=== PATIENT | male | born 1940 | race Caucasian/White ===

== ENCOUNTER 2016-05-22 19:04 | Observation (INO) ==
[2016-05-22] MEDS ORDERED: Aspirin 81 MG TAB.CHEW PO ONE (19:13)
--- NOTE | 2016-05-22 19:16 | Emergency Department Note ---
Disposition Clinical Impression: Chest pain, Atrial fibrillation Disposition: Admitted As Inpatient Condition: Fair Time of Disposition: 21:20 ([facility]) Chest Pain HPI - General Chief Complaint: ED Chest Pain Stated Complaint: chest pain Time Seen by Provider: 05/22/16 19:07 Source: patient Mode of arrival: ambulatory Limitations: age Vital Signs Reviewed: Yes Nursing Notes Reviewed: Yes - History of Present Illness HPI Narrative: Elderly male who was at home had a sudden onset of substernal chest pain no nausea no vomiting no diaphoresis Y states that he was flushed in the face he comes to the emergency room by private auto clutching his chest and complaining of substernal chest pain and felt like his to pass out that his heart was racing denies any known trauma denies prior history of cardiac disease denies any additional complaints Pt complaint: chest pain Onset (ago): hour(s) (2-4) Duration: intermittent Onset: during rest Pain Location: substernal Severity: moderate, severe Severity scale (1-10): 8 Improves with: nothing Worsens with: nothing Associated symptoms: Reports: nausea, diaphoresis, dyspnea, palpitations. Denies: vomiting, sense of impending doom, syncope, fever, cough, leg swelling Treatments prior to arrival chest pain: none - Related Data Home Medications Medication Instructions Recorded Confirmed Amlodipine [Norvasc] 5 mg PO DAILY 01/13/16 05/22/16 Diazepam [Valium] 10 mg PO HS 01/13/16 05/22/16 Ezetimibe [Zetia] 10 mg PO DAILY 01/13/16 05/22/16 Fenofibrate [Lofibra] 160 mg PO DAILY 01/13/16 05/22/16 Gabapentin [Neurontin] 300 mg PO TID 01/13/16 05/22/16 LORazepam [Ativan] 0.5 mg PO BID 01/13/16 05/22/16 Levothyroxine [Synthroid] 50 mcg PO DAILY 01/13/16 05/22/16 Losartan/HCTZ [Hyzaar 50-12.5 1 each PO DAILY 01/13/16 05/22/16 Tablet] Metformin [Glucophage] 500 mg PO BIDWM 01/13/16 05/22/16 OxyCODONE/APAP 10/325 [Percocet 1 each PO Q4HR PRN 01/13/16 05/22/16 10/325 MG] Testosterone Cypionate 50 mg IM Q2W 01/13/16 05/22/16 [Depo-Testosterone] Aspirin [Lo-Dose Aspirin EC] 81 mg PO DAILY 05/22/16 05/22/16 Niacin 500 mg PO BID 05/22/16 05/22/16 Tamsulosin HCl [Flomax] 0.4 mg PO DAILY 05/22/16 05/22/16 Allergies Allergy/AdvReac Type Severity Reaction Status Date / Time No Known Allergies Allergy Verified 05/22/16 19:06 All systems ED: reviewed and negative except as stated. Constitutional: Reports: weakness. Denies: fever, chills Eyes: Denies: eye pain ENT ED: Denies: ear pain Cardiovascular: Reports: chest pain, palpitations. Denies: dyspnea on exertion Respiratory: Reports: dyspnea Gastrointestinal: Denies: abdominal pain, nausea, vomiting Genitourinary: Denies: urgency, dysuria, frequency Musculoskeletal: Denies: back pain, neck pain Integumentary: Denies: abrasion, lesions Neurological: Denies: headache Psychiatric: Denies: anxiety Endocrine: Denies: fatigue Hematological/Lymphatic: Denies: easy bleeding Allergic/Immunologic: Denies: facial swelling Chest Pain PMH - Past Medical History Medical history: Reports: diabetes, hyperlipidemia, hypertension, myocardial infarction Psychiatric history: Reports: anxiety, depression - Social History Smoking Status: Former smoker Alcohol use: Reports: rarely Drug use: Reports: none Physical Exam - General Limitations: no limitations General appearance: alert, anxious, in distress - Head Head exam: atraumatic, normocephalic, normal inspection - Eye Eye exam: Present: normal appearance, PERRL, EOMI - ENT ENT exam: normal exam, normal oropharynx, mucous membranes moist, normal external ear exam - Neck Neck exam: Present: normal inspection, full ROM, trachea midline - Chest Chest inspection: Present: normal inspection, symmetric chest wall rise - Respiratory Respiratory exam: Present: normal lung sounds bilaterally - Cardiovascular Cardiovascular exam: Present: tachycardia, irregular rhythm - Abdominal Exam Abdominal exam: Present: soft, Non-Tender, normal bowel sounds. Absent: mass, pulsatile mass - Expanded Upper Extremity Exam Shoulder exam: Present: normal inspection, full ROM Arm exam: Present: normal inspection, full ROM Elbow exam: Present: normal inspection, full ROM Forearm/Wrist exam: Present: normal inspection, full ROM Hand exam: Present: normal inspection, full ROM Neurosensory exam: Normal: radial nerve, ulnar nerve, median nerve Vascular exam: Normal: capillary refill, radial pulse, ulnar pulse - Expanded Lower Extremity Exam Hip/Pelvis exam: Present: normal inspection, full ROM Upper leg exam: Present: normal inspection, full ROM Knee exam: Present: normal inspection, full ROM Lower leg exam: Present: normal inspection, full ROM Ankle exam: Present: normal inspection, full ROM Foot/toe exam: Present: normal inspection, full ROM Neurovascular/Tendon exam: Present: normal capillary refill, normal fine/light touch. Absent: motor deficit, sensory deficit, tendon deficit Gait: observed and normal - Back Exam Back exam: Present: normal inspection, full ROM. 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 Crook he is in agreement stable at time of transfer on a Cardizem drip 5/h a slight increase in his heart rate which prompted the second dose of Cardizem and the Cardizem drip Vital Signs Temperature 97.8 F 05/22/16 19:07 Pulse Rate 155 05/22/16 19:07 Respiratory Rate 23 05/22/16 19:07 Blood Pressure 160/82 05/22/16 19:07 O2 Sat by Pulse Oximetry 94 05/22/16 19:07 Temperature 97.8 F 05/22/16 19:09 Pulse Rate 100 05/22/16 22:16 Respiratory Rate 17 05/22/16 22:16 Blood Pressure 115/80 05/22/16 22:16 O2 Sat by Pulse Oximetry 96 05/22/16 22:16 Oxygen Delivery Oxygen Delivery Nasal Cannula Chest Pain - Medical Records Medical records reviewed: Yes I reviewed the patient's medical records. - Lab Data Lab results reviewed: Yes I reviewed the patient's lab results. Result diagrams: 05/22/16 19:17 05/22/16 19:17 Lab Results 05/22/16 05/22/16 05/22/16 Range/Units 19:17 19:17 19:17 WBC 7.2 (4.3-11.1) K/mcL RBC 4.70 (4.19-5.50) M/mcL Hgb 16.0 (12.9-16.9) g/dL Hct 46.5 (37.5-50.1) % MCV 98.9 (83.0-100.0) fL MCH 34.0 H (28.0-33.3) pg MCHC 34.4 (31.6-35.5) g/dL RDW 14.2 (11.5-14.5) % Plt Count 239 (140-400) K/mcL MPV 10.4 (9.4-12.4) fL Immature Gran % 0.3 (0-4) % Seg Neutrophils % 58.4 % Lymphocytes % 31.1 % Monocytes % 8.7 % Eosinophils % 1.1 % Basophils % 0.4 % Neutrophils # 4.2 (1.6-8.9) K/mcL Lymphocytes # 2.2 (0.6-4.6) K/mcL Monocytes # 0.6 (0.0-1.3) K/mcL Eosinophils # 0.1 (0.0-0.6) K/mcL Basophils # 0.0 (0.0-0.2) K/mcL PT 11.7 (9.4-12.1) Seconds INR 1.1 APTT 33.7 (26.0-36.0) Seconds D-Dimer 1536 H (0-500) ng/mLFEU Sodium 143 (136-145) mEq/L Potassium 3.8 (3.5-4.5) mEq/L Chloride 103 (98-109) mEq/L Carbon Dioxide 25 (19-29) mEq/L BUN 17 (8-26) mg/dL Creatinine 1.30 H (0.72-1.25) mg/dL Est GFR ( Amer) > 60 (> 60) Est GFR (Non-Af Amer) 54 L (> 60) BUN/Creatinine Ratio 13 (6-26) Glucose 99 (70-99) mg/dL Calculated Osmolality 298 (280-300) Calcium 9.8 (8.6-10.8) mg/dL Troponin I (0-0.03) ng/mL B-Natriuretic Peptide (0-100) pg/mL TSH 0.598 (0.350-4.840) mcIU/mL 05/22/16 05/22/16 Range/Units 19:17 19:17 WBC (4.3-11.1) K/mcL RBC (4.19-5.50) M/mcL Hgb (12.9-16.9) g/dL Hct (37.5-50.1) % MCV (83.0-100.0) fL MCH (28.0-33.3) pg MCHC (31.6-35.5) g/dL RDW (11.5-14.5) % Plt Count (140-400) K/mcL MPV (9.4-12.4) fL Immature Gran % (0-4) % Seg Neutrophils % % Lymphocytes % % Monocytes % % Eosinophils % % Basophils % % Neutrophils # (1.6-8.9) K/mcL Lymphocytes # (0.6-4.6) K/mcL Monocytes # (0.0-1.3) K/mcL Eosinophils # (0.0-0.6) K/mcL Basophils # (0.0-0.2) K/mcL PT (9.4-12.1) Seconds INR APTT (26.0-36.0) Seconds D-Dimer (0-500) ng/mLFEU Sodium (136-145) mEq/L Potassium (3.5-4.5) mEq/L Chloride (98-109) mEq/L Carbon Dioxide (19-29) mEq/L BUN (8-26) mg/dL Creatinine (0.72-1.25) mg/dL Est GFR ( Amer) (> 60) Est GFR (Non-Af Amer) (> 60) BUN/Creatinine Ratio (6-26) Glucose (70-99) mg/dL Calculated Osmolality (280-300) Calcium (8.6-10.8) mg/dL Troponin I 0.03 (0-0.03) ng/mL B-Natriuretic Peptide 426 H (0-100) pg/mL TSH (0.350-4.840) mcIU/mL - Radiology Data Radiology results reviewed: Yes I reviewed the patient's radiology results. ITS Impressions Chest X-Ray 05/22/16 19:12 IMPRESSION: Hypoaeration with vascular crowding and basilar atelectasis. D/ / 05/22/2016 19:32:22 Kai Thornton MD / perla Interpreting Provider: Kai Thornton MD Chest CTA 05/22/16 19:38 IMPRESSION: No evidence of pulmonary embolism or acute pulmonary abnormality. D/ / Wood Santos MD / Wood Santos MD Interpreting Provider: Wood Santos MD - EKG Data EKG attestation: Yes I reviewed and interpreted this EKG. EKG results narrative: Atrial fib with RVR i rate 154 QRS QT axis normal Heart Score - Score History: Moderately Suspicious EKG: Normal Age: Greater than 65 Risk Factors: Equal/Greater than 3 risk factor or history of atherosclerotic disease Troponin: Less than normal limit HEART Score Total: 5 Critical Care Time Critical Care Time: Yes Total Critical Care Time: 35 Attestation: Critical care performed: 5 minutes as a result patient is in atrial fib with RVR stabilization of the cardiac arrhythmia giving IV medications and discussion with the accepting physician for admission and transfer to his services Time is exclusive of separately billable procedures. Time includes: direct patient care, patient reassessment, coordination of patient care, interpretation of data (laboratory data, radiology data, and respiratory data), review of patient's medical records, medical consultation and documentation of patient care. Procedures included in critical care time: Procedures excluded from critical care time:
[2016-05-22 19:22] LABS: Basophils % 0.4 %; Eosinophils # 0.1 K/mcL (0.0-0.6); Eosinophils % 1.1 %; Hematocrit 46.5 % (37.5-50.1); Immature Granulocytes % 0.3 % (0-4); Lymphocytes # 2.2 K/mcL (0.6-4.6); Lymphocytes % 31.1 %; Mean Corpuscular HGB Conc 34.4 g/dL (31.6-35.5); Mean Corpuscular Volume 98.9 fL (83.0-100.0); Mean Platelet Volume 10.4 fL (9.4-12.4); Monocytes # 0.6 K/mcL (0.0-1.3); Monocytes % 8.7 %; Neutrophils # 4.2 K/mcL (1.6-8.9); Platelet Count 239 K/mcL (140-400); Red Cell Distribution Width 14.2 % (11.5-14.5); Segmented Neutrophils % 58.4 %
[2016-05-22 19:28] LABS: INR 1.1; Prothrombin Time 11.7 Seconds (9.4-12.1)
[2016-05-22 19:31] LABS: Activated Partial Thrombo Time 33.7 Seconds (26.0-36.0)
[2016-05-22 19:37] LABS: BUN/Creatinine Ratio 13 (6-26); Blood Urea Nitrogen 17 mg/dL (8-26); Calcium 9.8 mg/dL (8.6-10.8); Carbon Dioxide 25 mEq/L (19-29); Chloride 103 mEq/L (98-109); Glucose 99 mg/dL (70-99); Osmolality,Calculated 298 (280-300); Potassium 3.8 mEq/L (3.5-4.5); Sodium 143 mEq/L (136-145); eGFR For African Americans > 60 (> 60); eGFR For Non-African Americans 54 (> 60)
[2016-05-22 19:58] LABS: Thyroid Stimulating Hormone 0.598 mcIU/mL (0.350-4.840)
[2016-05-22] MEDS ORDERED: *HR* Enoxaparin 80 MG/0.8 ML SYRINGE SQ STA (20:36)
[2016-05-22] MEDS ORDERED: D5% in Water 100 ML ONE (21:46)
[2016-05-22] MEDS ORDERED: *HR* Dextrose 50 % in Water (Syg) 50 ML SYRINGE IVP PRN (23:46)
[2016-05-22] MEDS ORDERED: Dextrose Gel 15 GM PO PRN ×2 (23:46)
[2016-05-22] MEDS ORDERED: D5% in Water 1,000 ML IVC PRN (23:46)
[2016-05-22] MEDS ORDERED: 0.9 % Sodium Chloride 1,000 ML IVC SCH (23:46)
[2016-05-22] MEDS ORDERED: *HR* OxyCODONE/APAP 10/325 TABLET PO PRN (23:46)
[2016-05-22] MEDS ORDERED: Naloxone 0.4 MG/ML INJ IVP PRN (23:46)
[2016-05-23 02:30] LABS: Basophils % 0.4 %; Eosinophils # 0.1 K/mcL (0.0-0.6); Eosinophils % 2.1 %; Hematocrit 45.8 % (37.5-50.1); Hemoglobin 15.7 g/dL (12.9-16.9); Immature Granulocytes % 0.3 % (0-4); Lymphocytes # 2.3 K/mcL (0.6-4.6); Lymphocytes % 34.2 %; Mean Corpuscular HGB Conc 34.3 g/dL (31.6-35.5); Mean Corpuscular Volume 99.1 fL (83.0-100.0); Mean Platelet Volume 10.3 fL (9.4-12.4); Monocytes # 0.7 K/mcL (0.0-1.3); Monocytes % 10.8 %; Neutrophils # 3.5 K/mcL (1.6-8.9); Platelet Count 241 K/mcL (140-400); Red Blood Count 4.62 M/mcL (4.19-5.50); Red Cell Distribution Width 14.4 % (11.5-14.5); Segmented Neutrophils % 52.2 %
[2016-05-23] MEDS ORDERED: *HR* Digoxin 0.5 MG/2 ML AMPUL IVP ONE (02:31)
[2016-05-23] MEDS ORDERED: *HR* OxyCODONE/APAP 10/325 TABLET PO PRN (02:31)
[2016-05-23] MEDS ORDERED: 0.9 % Sodium Chloride 1,000 ML IVC SCH (02:31)
[2016-05-23] MEDS ORDERED: *HR* Dextrose 50 % in Water (Syg) 50 ML SYRINGE IVP PRN (02:31)
[2016-05-23] MEDS ORDERED: Naloxone 0.4 MG/ML INJ IVP PRN (02:31)
[2016-05-23] MEDS ORDERED: D5% in Water 1,000 ML IVC PRN (02:31)
[2016-05-23] MEDS ORDERED: Dextrose Gel 15 GM PO PRN ×2 (02:31)
[2016-05-23 02:39] LABS: INR 1.1; Prothrombin Time 11.8 Seconds (9.4-12.1)
[2016-05-23 02:41] LABS: Activated Partial Thrombo Time 39.6 Seconds (26.0-36.0)
[2016-05-23 02:45] LABS: Calcium 9.2 mg/dL (8.6-10.8); Potassium 4.3 mEq/L (3.5-4.5)
[2016-05-23] MEDS ORDERED: Levothyroxine 25 MCG TABLET PO SCH ×2 (06:30)
[2016-05-23] MEDS ORDERED: Insulin LISPRO 300 UNITS/3 ML VIAL SQ SCH ×2 (07:30)
[2016-05-23] MEDS ORDERED: *HR* LORazepam 0.5 MG TABLET PO SCH ×2 (09:00)
[2016-05-23] MEDS ORDERED: Fenofibrate 54 MG TABLET PO SCH ×2 (09:00)
[2016-05-23] MEDS ORDERED: Niacin (24 HR) 500 MG TAB.ER.24H PO SCH ×2 (09:00)
[2016-05-23] MEDS ORDERED: ZETIA 10MG PO SCH (09:00)
[2016-05-23] MEDS ORDERED: ZETIA 10 MG PO SCH (09:00)
[2016-05-23] MEDS ORDERED: Aspirin Enteric Coated 81 MG Tablet PO SCH ×2 (09:00)
[2016-05-23] MEDS ORDERED: Gabapentin 300 MG CAPSULE PO SCH ×2 (09:00)
[2016-05-23] MEDS ORDERED: Losartan/HCTZ 50-12.5 TABLET PO SCH ×2 (09:00)
--- NOTE | 2016-05-23 09:28 | Internal Med History&Physical ---
Date of Encounter: 05/23/16 Time of Encounter: 08:50 Assessment and Plan (1) Atrial fibrillation Current visit: Yes Status: Acute He was started on Cardizem drip in emergency room. He has now converted back to normal sinus rhythm. Qualifiers: Atrial fibrillation type: paroxysmal Qualified Code(s): I48.0 - Paroxysmal atrial fibrillation (2) Hypertension Current visit: Yes Status: Chronic Will start Toprol-XL and discontinue other antihypertensives Qualifiers: Hypertension type: essential hypertension Qualified Code(s): I10 - Essential (primary) hypertension (3) Azotemia Current visit: Yes Status: Acute Review of archived labs show probable chronic kidney disease stage III. He is uncertain if he is taking Hyzaar. I will start Toprol-XL as per above and renal indices can be monitored as an outpatient. (4) Chest pain Current visit: Yes Status: Acute Now resolved. He denies any angina or anginal equivalents on exertion routinely. Repeat cardiac enzymes were ordered through the emergency room. Qualifiers: Chest pain type: unspecified Qualified Code(s): R07.9 - Chest pain, unspecified Internal Medicine - H&P: HPI Chief complaint: Chest pain and palpitations Admitted From: Home Plans for Post Hospital Care: Home History of present illness: Mr. Vivas is a 76 year old male who states he had onset of tachypnea, tachycardia, and chest discomfort approximately 5 PM while at leisure. When it persisted for over an hour he decided to come to emergency room. He was evaluated and found to have AF with RVR. D-dimer was elevated but chest CTA showed no evidence of pulmonary embolism. He was placed on a Cardizem drip and admitted to [facility] floor for ongoing care needs. His cardiovascular history is significant for hypertension. He claims he had an [place] 2006. He states he had a heart catheter shortly after the [place] with no intervention recommended. He does not get angina or anginal equivalents now on exertion. He denies heart failure DVT or pulmonary embolus. He states he feels back to his baseline now and wishes to be discharged home. Past Med Surg Social Fam HX - Past Medical History Medical history: diabetes, hyperlipidemia, hypertension, myocardial infarction Psychiatric history: anxiety, depression - Social History Smoking Status: Former smoker Smokeless Tobacco Status: No Alcohol use: rarely Drug use: none Internal Medicine - H&P: Meds Amlodipine [Norvasc] 5 mg PO DAILY 01/13/16 [History] Diazepam [Valium] 10 mg PO HS 01/13/16 [History] Ezetimibe [Zetia] 10 mg PO DAILY 01/13/16 [History] Fenofibrate [Lofibra] 160 mg PO DAILY 01/13/16 [History] Gabapentin [Neurontin] 300 mg PO TID 01/13/16 [History] LORazepam [Ativan] 0.5 mg PO BID 01/13/16 [History] Levothyroxine [Synthroid] 50 mcg PO DAILY 01/13/16 [History] Losartan/HCTZ [Hyzaar 50-12.5 Tablet] 1 each PO DAILY 01/13/16 [History] Metformin [Glucophage] 500 mg PO BIDWM 01/13/16 [History] OxyCODONE/APAP 10/325 [Percocet 10/325 MG] 1 each PO Q4HR PRN 01/13/16 [History] Testosterone Cypionate [Depo-Testosterone] 50 mg IM Q2W 01/13/16 [History] Aspirin [Lo-Dose Aspirin EC] 81 mg PO DAILY 05/22/16 [History] Niacin 500 mg PO BID 05/22/16 [History] Tamsulosin HCl [Flomax] 0.4 mg PO DAILY 05/22/16 [History] Allergies No Known Allergies Allergy (Verified 05/22/16 19:06) All Systems PM: A 10-system review of systems was performed and is negative for pertinent findings except as documented above in the HPI. Review of systems: Gen.: He states his weight has been stable the past few months Cardiovascular: As per history of present illness Respiratory: He smoked from age [age] never exceeding one half pack per day. He does not have documented COPD and does not wear home oxygen GI: Denies disorders of his liver gallbladder or exocrine pancreas : He has BPH but denies other kidney or bladder disorders Neurologic: He denies large distribution strokes or seizures Endocrine: He was diagnosed with DM 2 approximately 2014. He has hypothyroidism and hyperlipidemia Hematology/oncology: He denies blood disorders cancers or anemia Psychiatric: He denies anxiety depression or other mental health issues Musculoskeletal: He had rotator cuff surgery on his right shoulder in the past. He denies other significant bone joint or muscle problems. He has had surgery on his right foot. - Constitutional Vitals: Temp Pulse Resp BP Pulse Ox 97.4 F L 79 18 125/80 95 05/23/16 08:00 05/23/16 08:00 05/23/16 08:00 05/23/16 08:00 05/23/16 08:00 Exam: Gen.: He is a well-developed well-nourished male who appears in no severe distress at present time. HEENT: Head is atraumatic and normocephalic. Eyes: EOMI. There is no scleral icterus. Mouth: Mucosa is moist. Neck: Supple and nontender. There is no thyromegaly or adenopathy noted. Heart: Regular without murmurs gallops or ectopics Lungs: No wheezes or crackles are heard. Abdomen: Soft and nontender. No masses or guarding are noted. Extremities: There is no cyanosis edema or clubbing noted. Dorsalis pedis and posterior tibial pulses are trace palpable bilaterally. Neurologic: Mental status: He is talkative and a good historian. Cranial nerves : Smile is symmetric. Forehead wrinkles bilaterally. Tongue protrudes midline. EOMI. Motor: There is no pronator drift. Cerebellar: Finger to nose is intact bilaterally. Skin: Warm and dry Internal Med - H&P Results - Labs CBC & Chem 7: 05/23/16 02:11 05/23/16 02:11 Labs: Short CBC 05/23/16 Range/Units 02:11 WBC 6.8 (4.3-11.1) K/mcL Hgb 15.7 (12.9-16.9) g/dL Hct 45.8 (37.5-50.1) % Plt Count 241 (140-400) K/mcL Neutrophils # 3.5 (1.6-8.9) K/mcL BMP 05/23/16 02:11 Sodium 144 Potassium 4.3 Chloride 106 Carbon Dioxide 27 BUN 18 Creatinine 1.43 H Glucose 99 Calcium 9.2 Cardiac Enzymes 05/23/16 05/23/16 Range/Units 02:11 07:48 Troponin I 0.06 H* 0.06 H* (0-0.03) ng/mL
--- NOTE | 2016-05-23 09:39 | Discharge Summary ---
Date of Encounter: 05/23/16 Time of Encounter: 08:50 - Discharge Diagnosis (1) Atrial fibrillation Priority: Primary Status: Acute Qualifiers: Atrial fibrillation type: paroxysmal Qualified Code(s): I48.0 - Paroxysmal atrial fibrillation (2) Hypertension Priority: Secondary Status: Chronic Qualifiers: Hypertension type: essential hypertension Qualified Code(s): I10 - Essential (primary) hypertension (3) Azotemia Priority: Secondary Status: Acute (4) Chest pain Priority: Secondary Status: Acute Qualifiers: Chest pain type: unspecified Qualified Code(s): R07.9 - Chest pain, unspecified - Discharge Medications Prescriptions: Metoprolol XL (24 HR) Succ [Toprol XL] 50 mg PO DAILY #30 tab.er.24h Home Medications: Diazepam [Valium] 10 mg PO HS 01/13/16 [History] Ezetimibe [Zetia] 10 mg PO DAILY 01/13/16 [History] Fenofibrate [Lofibra] 160 mg PO DAILY 01/13/16 [History] Gabapentin [Neurontin] 300 mg PO TID 01/13/16 [History] LORazepam [Ativan] 0.5 mg PO BID 01/13/16 [History] Levothyroxine [Synthroid] 50 mcg PO DAILY 01/13/16 [History] Metformin [Glucophage] 500 mg PO BIDWM 01/13/16 [History] OxyCODONE/APAP 10/325 [Percocet 10/325 MG] 1 each PO Q4HR PRN 01/13/16 [History] Testosterone Cypionate [Depo-Testosterone] 50 mg IM Q2W 01/13/16 [History] Aspirin [Lo-Dose Aspirin EC] 81 mg PO DAILY 05/22/16 [History] Niacin 500 mg PO BID 05/22/16 [History] Tamsulosin HCl [Flomax] 0.4 mg PO DAILY 05/22/16 [History] Metoprolol XL (24 HR) Succ [Toprol XL] 50 mg PO DAILY #30 tab.er.24h 05/23/16 [ Rx] Allergies/Adverse Reactions: Allergies No Known Allergies Allergy (Verified 05/22/16 19:06) Date of admission: 05/22/16 22:32 Primary care physician: Anel De Oliveira - Patient Status Disposition: Home, Self-Care Condition: Fair Overall status at discharge: patient is progressing back to baseline - Discharge Instructions Follow Up With: Anel De Oliveira MD [Primary Care Provider] - - Diet and Activity Activity: resume usual activities as tolerated Diet: diabetic diet Hospital course: Mr. Vivas is a 76 year old male who states he had onset of tachypnea, tachycardia, and chest discomfort approximately 5 PM while at leisure. When it persisted for over an hour he decided to come to emergency room. He was evaluated and found to have AF with RVR. D-dimer was elevated but chest CTA showed no evidence of pulmonary embolism. He was placed on a Cardizem drip and admitted to [facility] for ongoing care needs. Initial orders were written by the emergency room physician. I saw him on May 23 and performed a history physical and discharge. He was started on Cardizem drip through emergency room. He converted back to normal sinus rhythm at an acceptable rate and remained NSR throughout remainder of his hospital stay. The Cardizem drip was discontinued. Repeat cardiac enzymes showed a rise in troponin to 0.06 with repeat checks several hours later also 0.06. I felt this was likely troponin leak from demand ischemia from the AF with RVR. When I saw him he felt back to his baseline and wished to be discharged home. I will start him on Toprol-XL 50 mg daily and discontinue Hyzaar and Norvasc. Dr. De Oliveira can order follow-up labs to see if azotemia improves off Hyzaar. He will follow with Dr. De Oliveira within 1 week. - Time Spent with Patient Total time spent providing and/or coordinating discharge services: - Constitutional Vitals: Temp Pulse Resp BP Pulse Ox 97.4 F L 79 18 125/80 95 05/23/16 08:00 05/23/16 08:00 05/23/16 08:00 05/23/16 08:00 05/23/16 08:00
--- NOTE | 2016-05-25 08:55 | Electrocardiograph Report ---
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
[2016-05-26 08:30] VITALS: BP 125/80
== END 2016-05-23 11:15 | disposition home or self-care (01) ==
LOC: EMEROOPIK 19:04 → INPPIK 19:04
PROVIDERS: ADMIT Internal Medicine; ATTEND Internal Medicine

== ENCOUNTER 2017-11-06 00:32 | Observation (INO) ==
--- NOTE | 2017-11-06 00:55 | Emergency Department Note ---
Disposition Clinical Impression: Atrial fibrillation, Elevated troponin I level Disposition: Admitted As Inpatient Condition: Fair Referrals: Anel De Oliveira MD [Primary Care Provider] - Forms: ED Satisfaction Letter, Work/School Release Time of Disposition: 02:09 (mielna kumar) General Adult HPI - General Chief complaint: ED General Medical Stated complaint: multiple complaints Time Seen by Provider: 11/06/17 00:54 Source: patient Mode of arrival: ambulatory Limitations: no limitations Nursing Notes Reviewed: Yes Vital Signs Reviewed: Yes - History of Present Illness HPI Narrative: 77-year-old man who woke up earlier this evening about 2-3 hours prior nauseated sick to stomach and is somewhat of a sweat states that he just didn't feel well said that he fell if he could throw up he feel better he said that started to ease up but now he just has some persistent nausea really denies any chest pain chest pressure or radiation up into the neck of the jaw patient states that his ate the same thing [place] mash potatoes and chicken patient states that he felt flushed but didn't think that he had a fever states that he just can't get comfortable very uneasy feeling Onset (ago): hour(s) (3) Location: chest Pain Scale: 0 Improves with: nothing Worsens with: nothing Associated symptoms: Reports: chest pain, diaphoresis. Denies: confusion, cough Treatments Prior to Arrival: Aspirin - Related Data Home Medications Medication Instructions Recorded Confirmed Ezetimibe [Zetia] 10 mg PO DAILY 01/13/16 02/02/17 Gabapentin [Neurontin] 300 mg PO TID 01/13/16 11/06/17 LORazepam [Ativan] 0.5 mg PO BID PRN 01/13/16 11/06/17 Levothyroxine [Synthroid] 50 mcg PO DAILY 01/13/16 11/06/17 Testosterone Cypionate 100 mg IM Q2W 01/13/16 11/06/17 [Depo-Testosterone] diazePAM [Valium] 10 mg PO HS 01/13/16 11/06/17 metFORMIN [Glucophage] 500 mg PO BIDWM 01/13/16 11/06/17 Aspirin [Lo-Dose Aspirin EC] 81 mg PO DAILY 05/22/16 11/06/17 Tamsulosin HCl [Flomax] 0.4 mg PO DAILY 05/22/16 11/06/17 Multivitamin [Multi-Day Vitamins] 1 each PO DAILY 06/11/16 11/06/17 Naloxegol Oxalate [Movantik] 25 mg PO DAILY 06/11/16 11/06/17 Nitroglycerin [Nitrostat] 0.4 mg SL Q5M PRN 07/22/16 11/06/17 Rivaroxaban [Xarelto] 20 mg PO DAILY 07/22/16 11/06/17 Atorvastatin [Lipitor] 40 mg PO HS 11/10/16 11/06/17 Digoxin [Lanoxin] 0.125 mg PO DAILY 11/10/16 11/06/17 Losartan/Hydrochlorothiazide 1 tab PO DAILY 11/12/16 11/06/17 [Hyzaar 100-12.5 Tablet] Fenofibrate Nanocrystallized 160 mg PO DAILY 11/17/16 11/06/17 [Triglide] Previous Rx's Medication Instructions Recorded OxyCODONE/APAP 10/325 [Percocet 1 each PO Q4H PRN 7 Days #42 tablet 11/24/16 10/325 MG] Allergies Allergy/AdvReac Type Severity Reaction Status Date / Time No Known Allergies Allergy Verified 02/02/17 10:21 All systems ED: reviewed and negative except as stated. Review of Systems: As Per HPI Constitutional: Reports: fever. Denies: chills, weakness Eyes: Denies: eye pain, eye discharge ENT ED: Denies: ear pain, throat pain, dental pain Cardiovascular: Reports: chest pain, palpitations. Denies: dyspnea on exertion Respiratory: Denies: cough, dyspnea, wheezes Gastrointestinal: Reports: abdominal pain, nausea, vomiting (dry heaves) Genitourinary: Denies: urgency, dysuria, frequency Musculoskeletal: Denies: back pain, neck pain Integumentary: Denies: rash, abrasion Neurological: Denies: headache, weakness Psychiatric: Denies: anxiety, depression Endocrine: Denies: fatigue Hematological/Lymphatic: Denies: easy bleeding Allergic/Immunologic: Denies: facial swelling Past Medical History - Past Medical History Attestation: Yes The following information was validated with the patient. Source: patient, old records reviewed, nursing notes reviewed Medical history: Reports: arthritis, coronary artery disease, diabetes, glaucoma , hyperlipidemia, hypertension, myocardial infarction, other Surgical history: Reports: cholecystectomy, orthopedic, other, vascular surgery Psychiatric history: Reports: anxiety, depression - Social History Smoking Status: Current some day smoker Smokeless Tobacco Status: No Alcohol use: Reports: rarely Drug use: Reports: none Physical Exam - General Limitations: no limitations General appearance: alert, in no apparent distress - Head Head exam: atraumatic, normocephalic, normal inspection - Eye Eye exam: Present: normal appearance, PERRL, EOMI - ENT ENT exam: normal exam, normal oropharynx, mucous membranes moist, TM's normal bilaterally, normal external ear exam - Neck Neck exam: Present: normal inspection, full ROM, trachea midline - Chest Chest inspection: Present: normal inspection, symmetric chest wall rise - Respiratory Respiratory exam: Present: normal lung sounds bilaterally - Cardiovascular Cardiovascular exam: Present: regular rate, normal rhythm, normal heart sounds - Abdominal Exam Abdominal exam: Present: soft, Non-Tender, normal bowel sounds. Absent: mass, pulsatile mass - Extremities Exam Extremities exam: Present: normal inspection, full ROM, normal capillary refill. Absent: tenderness, pedal edema, joint swelling, calf tenderness - Expanded Lower Extremity Exam Neurovascular/Tendon exam: Present: normal capillary refill, normal fine/light touch Gait: observed and normal - Back Exam Back exam: Present: normal inspection, full ROM. Absent: muscle spasm - Neurological Exam Neurological exam: Present: alert, oriented X3, CN II-XII intact, normal gait - Psychiatric Psychiatric exam: Present: normal affect, normal mood Course Course Narrative: Patient was seen and examined EKG chest x-ray and laboratory data was drawn patient was maintained will monitor showed an occasional couplet and multifocal PVCs she appears to be clearly an atrial fib with RVR pattern fluctuating between 109 and in the 125 230 we have patient Cardizehammad to see if this slows his heart rate down he took aspirin prior to arrival anticipate transfer to [facility] for further management Patient rated will do the chest pressure and then went into a heart rate of 140 150 with RVR and his result of him 10 mg of Cardizem his heart rate then dropped to 108 any significant a little bit better all his discomfort was starting to ease but then with any type of movement amount of the bed he started having increasing tachycardia again going back endometrial fluid with RVR gave him an additional 5 mg of the Cardizem 15 milligrams total and the heart rate then slowed down to a high of 110 to 1:15 unless he was physically moving about the bed and then he would go up into an atrial fibrillation RVR still waiting on his dig level to come back to see if he is subtherapeutic on his did he has been taking his metoprolol XR once a day a kidney of his evening medications and he cannot recall which ones he takes at night as result we will anticipated transfer to [facility] for further management and treatment is now resting with a heart rate is 77 he has no further chest pain chest discomfort or any uneasy feeling patient's running a rate of 86 with an occasional unifocal PVC with a blood pressure of 124/65 patient is in atrial fib flutter Vital Signs Temperature 97.1 F L 11/06/17 00:34 Pulse Rate 102 11/06/17 00:34 Respiratory Rate 16 11/06/17 00:34 Blood Pressure 170/99 11/06/17 00:34 O2 Sat by Pulse Oximetry 92 11/06/17 00:34 Temperature 97.1 F L 11/06/17 00:34 Pulse Rate 81 11/06/17 01:39 Respiratory Rate 20 11/06/17 01:39 Blood Pressure 137/57 11/06/17 01:39 O2 Sat by Pulse Oximetry 97 11/06/17 01:39 Oxygen Delivery Oxygen Delivery Room Air Medical Decision Making - Medical Records Medical records reviewed: Yes I reviewed the patient's medical records. - Lab Data Lab results reviewed: Yes I reviewed the patient's lab results. Result diagrams: 11/06/17 01:17 11/06/17 01:17 Lab Results 11/06/17 11/06/17 11/06/17 Range/Units 01:17 01:17 01:17 WBC 7.3 (4.3-11.1) K/mcL RBC 4.25 (4.19-5.50) M/mcL Hgb 15.2 (12.9-16.9) g/dL Hct 42.3 (37.5-50.1) % MCV 99.5 (83.0-100.0) fL MCH 35.8 H (28.0-33.3) pg MCHC 35.9 H (31.6-35.5) g/dL RDW 12.4 (11.5-14.5) % Plt Count 192 (140-400) K/mcL MPV 10.1 (9.4-12.4) fL Immature Gran % 0.3 (0-4) % Seg Neutrophils % 57.5 % Lymphocytes % 31.0 % Monocytes % 8.7 % Eosinophils % 2.1 % Basophils % 0.4 % Neutrophils # 4.2 (1.6-8.9) K/mcL Lymphocytes # 2.3 (0.6-4.6) K/mcL Monocytes # 0.6 (0.0-1.3) K/mcL Eosinophils # 0.2 (0.0-0.6) K/mcL Basophils # 0.0 (0.0-0.2) K/mcL PT (9.4-12.1) Seconds INR APTT 36.0 (26.0-36.0) Seconds Sodium 133 L (136-145) mEq/L Potassium 3.8 (3.5-5.1) mEq/L Chloride 99 (98-107) mEq/L Carbon Dioxide 26 (23-29) mEq/L BUN 20 (8-23) mg/dL Creatinine 1.17 (0.70-1.30) mg/dL Est GFR ( Amer) > 60 (> 60) Est GFR (Non-Af Amer) > 60 (> 60) BUN/Creatinine Ratio 17 (6-26) Glucose 108 H (70-105) mg/dL Calculated Osmolality 279 L (280-300) Lactic Acid (0.5-2.2) mmol/L Calcium 8.8 (8.6-10.3) mg/dL Magnesium (1.6-2.6) mg/dL Total Bilirubin 0.5 (0.3-1.0) mg/dL AST 18 (13-39) Units/L ALT 13 (7-52) Units/L Alkaline Phosphatase 24 L (34-104) Units/L Troponin I (< 0.04) ng/mL Serum Total Protein 6.2 L (6.4-8.9) g/dL Albumin 3.9 (3.5-5.7) g/dL Globulin 2.3 L (2.4-3.5) g/dL Albumin/Globulin Ratio 1.7 (1.1-2.2) TSH (0.340-5.600) mcIU/mL Urine Color (Yellow) Urine Clarity (Clear) Urine pH (5.0-8.0) pH Units Ur Specific [place] (1.010-1.025) Urine Protein (Neg-Trace) mg/dL Urine Glucose (UA) (Normal) mg/dL Urine Ketones (Negative) mg/dL Urine Blood (Negative) Urine Nitrite (Negative) Urine Bilirubin (Negative) Urine Urobilinogen (Normal) mg/dL Ur Leukocyte Esterase (Negative) Urine Microscopic RBC (0-3) per hpf Urine Microscopic WBC (0-3) per hpf Ur Squamous Epith Cells (None-Few) per lpf Urine Bacteria (None-Few) per hpf Ur Culture Indicated? (NO) 11/06/17 11/06/17 11/06/17 Range/Units 01:17 01:17 01:17 WBC (4.3-11.1) K/mcL RBC (4.19-5.50) M/mcL Hgb (12.9-16.9) g/dL Hct (37.5-50.1) % MCV (83.0-100.0) fL MCH (28.0-33.3) pg MCHC (31.6-35.5) g/dL RDW (11.5-14.5) % Plt Count (140-400) K/mcL MPV (9.4-12.4) fL Immature Gran % (0-4) % Seg Neutrophils % % Lymphocytes % % Monocytes % % Eosinophils % % Basophils % % Neutrophils # (1.6-8.9) K/mcL Lymphocytes # (0.6-4.6) K/mcL Monocytes # (0.0-1.3) K/mcL Eosinophils # (0.0-0.6) K/mcL Basophils # (0.0-0.2) K/mcL PT 11.8 (9.4-12.1) Seconds INR 1.0 APTT (26.0-36.0) Seconds Sodium (136-145) mEq/L Potassium (3.5-5.1) mEq/L Chloride (98-107) mEq/L Carbon Dioxide (23-29) mEq/L BUN (8-23) mg/dL Creatinine (0.70-1.30) mg/dL Est GFR ( Amer) (> 60) Est GFR (Non-Af Amer) (> 60) BUN/Creatinine Ratio (6-26) Glucose (70-105) mg/dL Calculated Osmolality (280-300) Lactic Acid 1.2 (0.5-2.2) mmol/L Calcium (8.6-10.3) mg/dL Magnesium 1.9 (1.6-2.6) mg/dL Total Bilirubin (0.3-1.0) mg/dL AST (13-39) Units/L ALT (7-52) Units/L Alkaline Phosphatase (34-104) Units/L Troponin I 0.05 H* (< 0.04) ng/mL Serum Total Protein (6.4-8.9) g/dL Albumin (3.5-5.7) g/dL Globulin (2.4-3.5) g/dL Albumin/Globulin Ratio (1.1-2.2) TSH 1.080 (0.340-5.600) mcIU/mL Urine Color (Yellow) Urine Clarity (Clear) Urine pH (5.0-8.0) pH Units Ur Specific [place] (1.010-1.025) Urine Protein (Neg-Trace) mg/dL Urine Glucose (UA) (Normal) mg/dL Urine Ketones (Negative) mg/dL Urine Blood (Negative) Urine Nitrite (Negative) Urine Bilirubin (Negative) Urine Urobilinogen (Normal) mg/dL Ur Leukocyte Esterase (Negative) Urine Microscopic RBC (0-3) per hpf Urine Microscopic WBC (0-3) per hpf Ur Squamous Epith Cells (None-Few) per lpf Urine Bacteria (None-Few) per hpf Ur Culture Indicated? (NO) 11/06/17 Range/Units 01:31 WBC (4.3-11.1) K/mcL RBC (4.19-5.50) M/mcL Hgb (12.9-16.9) g/dL Hct (37.5-50.1) % MCV (83.0-100.0) fL MCH (28.0-33.3) pg MCHC (31.6-35.5) g/dL RDW (11.5-14.5) % Plt Count (140-400) K/mcL MPV (9.4-12.4) fL Immature Gran % (0-4) % Seg Neutrophils % % Lymphocytes % % Monocytes % % Eosinophils % % Basophils % % Neutrophils # (1.6-8.9) K/mcL Lymphocytes # (0.6-4.6) K/mcL Monocytes # (0.0-1.3) K/mcL Eosinophils # (0.0-0.6) K/mcL Basophils # (0.0-0.2) K/mcL PT (9.4-12.1) Seconds INR APTT (26.0-36.0) Seconds Sodium (136-145) mEq/L Potassium (3.5-5.1) mEq/L Chloride (98-107) mEq/L Carbon Dioxide (23-29) mEq/L BUN (8-23) mg/dL Creatinine (0.70-1.30) mg/dL Est GFR ( Amer) (> 60) Est GFR (Non-Af Amer) (> 60) BUN/Creatinine Ratio (6-26) Glucose (70-105) mg/dL Calculated Osmolality (280-300) Lactic Acid (0.5-2.2) mmol/L Calcium (8.6-10.3) mg/dL Magnesium (1.6-2.6) mg/dL Total Bilirubin (0.3-1.0) mg/dL AST (13-39) Units/L ALT (7-52) Units/L Alkaline Phosphatase (34-104) Units/L Troponin I (< 0.04) ng/mL Serum Total Protein (6.4-8.9) g/dL Albumin (3.5-5.7) g/dL Globulin (2.4-3.5) g/dL Albumin/Globulin Ratio (1.1-2.2) TSH (0.340-5.600) mcIU/mL Urine Color Yellow (Yellow) Urine Clarity Clear (Clear) Urine pH 7.0 (5.0-8.0) pH Units Ur Specific [place] 1.010 (1.010-1.025) Urine Protein Negative (Neg-Trace) mg/dL Urine Glucose (UA) Normal (Normal) mg/dL Urine Ketones Negative (Negative) mg/dL Urine Blood Trace-intact H (Negative) Urine Nitrite Negative (Negative) Urine Bilirubin Negative (Negative) Urine Urobilinogen Normal (Normal) mg/dL Ur Leukocyte Esterase Negative (Negative) Urine Microscopic RBC 0-3 (0-3) per hpf Urine Microscopic WBC 0-3 (0-3) per hpf Ur Squamous Epith Cells Few (None-Few) per lpf Urine Bacteria None Seen (None-Few) per hpf Ur Culture Indicated? NO (NO) - Radiology Data Radiology results reviewed: Yes I reviewed the patient's radiology results. ITS Impressions Chest X-Ray 11/06/17 00:51 IMPRESSION: No acute cardiopulmonary findings. 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 D/ / Alonso Hong / Alonso Hong Interpreting Provider: Alonso Hong - EKG Data EKG #1 EKG attestation: Yes I reviewed and interpreted this EKG. EKG results narrative: EKG atrial fibrillation rapid ventricular response rate of 123 QRS 94 QT to 77 axis -29 Critical Care Time Critical Care Time: Yes Total Critical Care Time: 15 Attestation: Critical care performed: 15 minutes high probability significant life- threatening deterioration patient edition excluding separately reportable procedures as result patient coming in with atrial fib with RVR and then going into an increased rate and then requiring Cardizem Time is exclusive of separately billable procedures. Time includes: direct patient care, patient reassessment, coordination of patient care, interpretation of data (laboratory data, radiology data, and respiratory data), review of patient's medical records, medical consultation and documentation of patient care. Procedures included in critical care time: Procedures excluded from critical care time:
[2017-11-06 01:33] LABS: Basophils % 0.4 %; Eosinophils # 0.2 K/mcL (0.0-0.6); Eosinophils % 2.1 %; Hematocrit 42.3 % (37.5-50.1); Hemoglobin 15.2 g/dL (12.9-16.9); Immature Granulocytes % 0.3 % (0-4); Lymphocytes # 2.3 K/mcL (0.6-4.6); Mean Corpuscular HGB Conc 35.9 g/dL (31.6-35.5); Mean Corpuscular Hemoglobin 35.8 pg (28.0-33.3); Mean Corpuscular Volume 99.5 fL (83.0-100.0); Mean Platelet Volume 10.1 fL (9.4-12.4); Monocytes # 0.6 K/mcL (0.0-1.3); Monocytes % 8.7 %; Neutrophils # 4.2 K/mcL (1.6-8.9); Platelet Count 192 K/mcL (140-400); Red Blood Count 4.25 M/mcL (4.19-5.50); Red Cell Distribution Width 12.4 % (11.5-14.5); Segmented Neutrophils % 57.5 %
[2017-11-06 01:35] LABS: Bilirubin,Urine Negative (Negative); Blood,Urine Trace-intact (Negative); Clarity,Urine Clear (Clear); Color,Urine Yellow (Yellow); Glucose,Urine (UA) Normal (Normal); Ketones,Urine Negative (Negative); Leukocyte Esterase,Urine Negative (Negative); Nitrite,Urine Negative (Negative); Protein,Urine Negative (Neg-Trace); Urobilinogen,Urine Normal (Normal)
[2017-11-06 01:47] LABS: Bacteria,Urine None Seen per hpf (None-Few); RBC,Urine 0-3 per hpf (0-3); Squamous Epithelial Cell,Urine Few per lpf (None-Few); WBC,Urine 0-3 per hpf (0-3)
[2017-11-06 01:49] LABS: Magnesium 1.9 mg/dL (1.6-2.6)
[2017-11-06 01:50] LABS: Alanine Aminotransferase 13 Units/L (7-52); Albumin 3.9 g/dL (3.5-5.7); Albumin/Globulin Ratio 1.7 (1.1-2.2); Alkaline Phosphatase 24 Units/L (34-104); Aspartate Amino Transferase 18 Units/L (13-39); BUN/Creatinine Ratio 17 (6-26); Bilirubin,Total 0.5 mg/dL (0.3-1.0); Blood Urea Nitrogen 20 mg/dL (8-23); Calcium 8.8 mg/dL (8.6-10.3); Carbon Dioxide 26 mEq/L (23-29); Chloride 99 mEq/L (98-107); Globulin 2.3 g/dL (2.4-3.5); Glucose 108 mg/dL (70-105); Osmolality,Calculated 279 (280-300); Potassium 3.8 mEq/L (3.5-5.1); Sodium 133 mEq/L (136-145); Total Protein 6.2 g/dL (6.4-8.9); eGFR For Non-African Americans > 60 (> 60)
[2017-11-06 01:51] LABS: Prothrombin Time 11.8 Seconds (9.4-12.1)
[2017-11-06 01:54] LABS: Troponin I 0.05 ng/mL (< 0.04)
[2017-11-06 02:04] LABS: Thyroid Stimulating Hormone 1.08 mcIU/mL (0.340-5.600)
[2017-11-06] MEDS ORDERED: NON-FORMULARY MEDICATION 1 EACH EACH (Testosterone Cypionate [Depo-Testosterone] 100 MG) IM SCH (02:46)
[2017-11-06] MEDS ORDERED: *HR* LORazepam 0.5 MG TABLET PO PRN (02:46)
[2017-11-06] MEDS ORDERED: Naloxone 0.4 MG/ML INJ IVP PRN (02:46)
[2017-11-06] MEDS ORDERED: Nitroglycerin 0.4 MG TAB.SUBL SL PRN (02:46)
[2017-11-06] MEDS ORDERED: Nitroglycerin 0.4 MG TAB.SUBL SL ONE (03:21)
[2017-11-06] MEDS ORDERED: Levothyroxine 25 MCG TABLET PO SCH (06:30)
[2017-11-06] MEDS ORDERED: *HR* Metformin 500 MG TABLET PO SCH (08:00)
[2017-11-06] MEDS ORDERED: Aspirin Enteric Coated 81 MG Tablet PO SCH (09:00)
[2017-11-06] MEDS ORDERED: Fenofibrate 54 MG TABLET PO SCH (09:00)
[2017-11-06] MEDS ORDERED: Multivit/Ca/Min/Fe/FA 1 TAB TABLET PO SCH (09:00)
[2017-11-06] MEDS ORDERED: *HR* Rivaroxaban 10 MG TABLET PO SCH (09:00)
[2017-11-06] MEDS ORDERED: Losartan/HCTZ 50-12.5 TABLET PO SCH (09:00)
[2017-11-06] MEDS ORDERED: MOVANTIK 25 MG PO SCH (09:00)
[2017-11-06] MEDS ORDERED: *HR* Digoxin 0.125 MG TABLET PO SCH (09:00)
[2017-11-06] MEDS: Gabapentin 300 MG CAPSULE PO SCH ×2 (10:03→14:12)
[2017-11-06] MEDS: *HR* OxyCODONE/APAP 10/325 TABLET PO PRN ×2 (10:07→14:12)
[2017-11-06 12:11] VITALS: BP 156/71
--- NOTE | 2017-11-06 15:42 | Internal Med History&Physical ---
Date of Encounter: 11/06/17 Time of Encounter: 15:00 Assessment and Plan (1) Atrial fibrillation with RVR Current visit: No Status: Chronic Now converted to NSR. Continue Xarelto and Lanoxin. Increase dose of Toprol- XL. TSH was normal at 1.080. (2) Elevated troponin Current visit: No Status: Chronic Elevated on most labs since June 2014. Will order serial enzymes. (3) HTN (hypertension) Current visit: No Status: Chronic Increase Toprol as per above. Qualifiers: Hypertension type: essential hypertension Qualified Code(s): I10 - Essential (primary) hypertension (4) Diabetes mellitus Current visit: No Status: Chronic Hemoglobin A1c was 5.4% on 08/30/2017. Discontinue metformin Qualifiers: Diabetes mellitus type: type 2 Diabetes mellitus machine long goods helper insulin use: without care home use Diabetes mellitus complication status: with unspecified complications Qualified Code(s): E11.8 - Type 2 diabetes mellitus with unspecified complications Internal Medicine - H&P: HPI Chief complaint: Palpitations Admitted From: Emergency Dept Plans for Post Hospital Care: Home History of present illness: Mr. Vivas is a 77 year old male who came to emergency room stating when he awakened from a nap he had sensation of rapid heart rate with nausea and diaphoresis. He denies chest pain. He came to emergency room was evaluated and found to have AF with RVR. He was given dose of IV Cardizem which slowed his rate. He required additional Cardizem her troponin was slightly elevated at 0.06. EKG did not show acute changes. He was admitted to [facility] floor for ongoing care needs. He was hospitalized at [facility] May 2016 with AF with RVR. He converted to NSR after being started on Cardizem drip in emergency room. At discharge Hyzaar and Norvasc were discontinued and he was started on Toprol-XL. He is uncertain about some of his present medications and is uncertain if he is still on Toprol and/or Hyzaar. He does take Xarelto and Lanoxin for the AF history. He claims he had VT 2006. He reports heart cath shortly afterward with no intervention recommended. He does not get angina or anginal equivalents on exertion including climbing a hill. He denies heart failure DVT or pulmonary embolus. Past Med Surg Social Fam HX - Past Medical History Medical history: arthritis, coronary artery disease, diabetes, glaucoma, hyperlipidemia, hypertension, myocardial infarction, other Additional medical history: NSTEMI, diverticulosis Psychiatric history: anxiety, depression - Past Surgical History Surgical History: cholecystectomy, orthopedic, other, vascular surgery Additional surgical history: subcalvin bypass graft, shoulder sx, salivary gland sx, cataract - Social History Smoking Status: Current some day smoker Smokeless Tobacco Status: No Alcohol use: rarely Drug use: none - Family History Mother Family Member Ethnicity: Non- Living Status: Hx Family Cancer: Yes (Breast cancer) Internal Medicine - H&P: Meds Ezetimibe [Zetia] 10 mg PO DAILY 01/13/16 [History] Gabapentin [Neurontin] 300 mg PO TID 01/13/16 [History] LORazepam [Ativan] 0.5 mg PO BID PRN 01/13/16 [History] Levothyroxine [Synthroid] 50 mcg PO DAILY 01/13/16 [History] Testosterone Cypionate [Depo-Testosterone] 100 mg IM Q2W 01/13/16 [History] diazePAM [Valium] 10 mg PO HS 01/13/16 [History] metFORMIN [Glucophage] 500 mg PO BIDWM 01/13/16 [History] Aspirin [Lo-Dose Aspirin EC] 81 mg PO DAILY 05/22/16 [History] Tamsulosin HCl [Flomax] 0.4 mg PO DAILY 05/22/16 [History] Multivitamin [Multi-Day Vitamins] 1 each PO DAILY 06/11/16 [History] Naloxegol Oxalate [Movantik] 25 mg PO DAILY 06/11/16 [History] Nitroglycerin [Nitrostat] 0.4 mg SL Q5M PRN 07/22/16 [History] Rivaroxaban [Xarelto] 20 mg PO DAILY 07/22/16 [History] Atorvastatin [Lipitor] 40 mg PO HS 11/10/16 [History] Digoxin [Lanoxin] 0.125 mg PO DAILY 11/10/16 [History] Losartan/Hydrochlorothiazide [Hyzaar 100-12.5 Tablet] 1 tab PO DAILY 11/12/16 [ History] Fenofibrate Nanocrystallized [Triglide] 160 mg PO DAILY 11/17/16 [History] OxyCODONE/APAP 10/325 [Percocet 10/325 MG] 1 each PO Q4H PRN 7 Days #42 tablet 11/24/16 [Rx] 3 Allergy/AdvReac Type Severity Reaction Status Date / Time No Known Allergies Allergy Verified 02/02/17 10:21 All Systems PM: A 10-system review of systems was performed and is negative for pertinent findings except as documented above in the HPI. Review of systems: Review of systems from his May 2016 [facility] hospitalization were reviewed and revised as below. Gen.: His weight has decreased from 83.915 kg on 05/22/2016 to 73.255 kg now. He states this was intentional. Cardiovascular: As per history of present illness Respiratory: He smoked from age [age] never exceeding one half pack per day. He does not have documented COPD and does not wear home oxygen GI: Denies disorders of his liver or exocrine pancreas. He had laparoscopic cholecystectomy November 2016. : He has BPH but denies other kidney or bladder disorders Neurologic: He denies large distribution strokes or seizures Endocrine: He was diagnosed with DM 2 approximately 2014. He has hypothyroidism and hyperlipidemia Hematology/oncology: He denies blood disorders cancers or anemia Psychiatric: He denies anxiety depression or other mental health issues Musculoskeletal: He had rotator cuff surgery on his right shoulder in the past. He denies other significant bone joint or muscle problems. He has had surgery on his right foot. - Constitutional Vitals: Temp Pulse Resp BP Pulse Ox 97.6 F 75 15 156/71 96 11/06/17 11:58 11/06/17 11:58 11/06/17 11:58 11/06/17 11:58 11/06/17 11:58 Exam: Gen.: He is a well-developed well-nourished male resting comfortably in bed who appears in no acute distress at present time. HEENT: Head is atraumatic and normocephalic. Eyes: EOMI. There is no scleral icterus. Mouth: Mucosa is moist. Neck: Supple and nontender. There is no thyromegaly or adenopathy noted. Heart: Regular without murmurs gallops or ectopics Lungs: No wheezes or crackles are heard. Abdomen: Soft and nontender. No masses or guarding are noted. Extremities: There is no cyanosis edema or clubbing noted. Dorsalis pedis and posterior tibial pulses are 1-2 over 2 bilaterally. Neurologic: Mental status: He is talkative and a good historian. Cranial nerves : Smile is symmetric. Forehead wrinkles bilaterally. Tongue protrudes midline. EOMI. Motor: There is no pronator drift. Cerebellar: Finger to nose is intact bilaterally. Skin: Warm and dry Internal Med - H&P Results - Labs CBC & Chem 7: 11/06/17 01:17 11/06/17 01:17 Labs: Cardiac Enzymes 11/06/17 11/06/17 Range/Units 07:30 13:11 Troponin I 0.07 H* 0.06 H* (< 0.04) ng/mL
--- NOTE | 2017-11-06 16:08 | Discharge Summary ---
Date of Encounter: 11/06/17 Time of Encounter: 15:00 - Discharge Diagnosis (1) Atrial fibrillation with RVR Priority: Primary Status: Resolved (2) Elevated troponin Priority: Secondary Status: Chronic (3) HTN (hypertension) Priority: Secondary Status: Chronic Qualifiers: Hypertension type: essential hypertension Qualified Code(s): I10 - Essential (primary) hypertension (4) Diabetes mellitus Priority: Secondary Status: Chronic Qualifiers: Diabetes mellitus type: type 2 Diabetes mellitus nursing home insulin use: without nursing home use Diabetes mellitus complication status: with unspecified complications Qualified Code(s): E11.8 - Type 2 diabetes mellitus with unspecified complications Hospital course: Mr. Vivas is a 77 year old male who came to emergency room stating when he awakened from a nap he had sensation of rapid heart rate with nausea and diaphoresis. He denies chest pain. He came to emergency room was evaluated and found to have AF with RVR. He was given dose of IV Cardizem which slowed his rate. He required additional Cardizem to maintain satisfactory heart rate. Troponin was slightly elevated at 0.06. EKG did not show acute changes. He was admitted to [facility] floor for ongoing care needs. Initial orders were written by the emergency room physician. I saw him on November 06 and performed the history and physical. Repeat cardiac enzymes showed no significant change in troponin. Review of past labs show troponin elevated on almost all labs since June 2014. I felt he likely had demand ischemia related to AF with RVR. He was asymptomatic when I saw him and had converted back to normal sinus rhythm. I reviewed his medication list from [facility] pharmacy. He was taking Toprol-XL 25 mg daily. He was also on Xarelto and Lanoxin. I will increase Toprol XL to 50 mg daily. His PCP can monitor blood pressure and adjust medications as needed. Hemoglobin A1c was 5.4% on 08/30/2017. Metformin will be decreased to 500 mg daily. He will continue to monitor Accu-Cheks at home. He will be discharged and follow with his PCP within 1 week. - Time Spent with Patient Total time spent providing and/or coordinating discharge services: - Discharge Medications Prescriptions: Metoprolol Succinate 50 mg PO DAILY #30 tab.er.24h Home Medications: Ezetimibe [Zetia] 10 mg PO DAILY 01/13/16 [History] Gabapentin [Neurontin] 300 mg PO TID 01/13/16 [History] LORazepam [Ativan] 0.5 mg PO BID PRN 01/13/16 [History] Levothyroxine [Synthroid] 50 mcg PO DAILY 01/13/16 [History] Testosterone Cypionate [Depo-Testosterone] 100 mg IM Q2W 01/13/16 [History] diazePAM [Valium] 10 mg PO HS 01/13/16 [History] Aspirin [Lo-Dose Aspirin EC] 81 mg PO DAILY 05/22/16 [History] Tamsulosin HCl [Flomax] 0.4 mg PO DAILY 05/22/16 [History] Multivitamin [Multi-Day Vitamins] 1 each PO DAILY 06/11/16 [History] Naloxegol Oxalate [Movantik] 25 mg PO DAILY 06/11/16 [History] Nitroglycerin [Nitrostat] 0.4 mg SL Q5M PRN 07/22/16 [History] Rivaroxaban [Xarelto] 20 mg PO DAILY 07/22/16 [History] Atorvastatin [Lipitor] 40 mg PO HS 11/10/16 [History] Digoxin [Lanoxin] 0.125 mg PO DAILY 11/10/16 [History] Fenofibrate Nanocrystallized [Triglide] 160 mg PO DAILY 11/17/16 [History] OxyCODONE/APAP 10/325 [Percocet 10/325 MG] 1 each PO Q4H PRN 7 Days #42 tablet 11/24/16 [Rx] Metoprolol Succinate 50 mg PO DAILY #30 tab.er.24h 11/06/17 [Rx] metFORMIN [Glucophage] 500 mg PO DAILY tablet 11/06/17 [Rx] Allergies/Adverse Reactions: 3 Allergy/AdvReac Type Severity Reaction Status Date / Time No Known Allergies Allergy Verified 02/02/17 10:21 Date of admission: 11/06/17 02:36 Primary care physician: Anel De Oliveira - Constitutional Vitals: Temp Pulse Resp BP Pulse Ox 97.6 F 75 15 156/71 96 11/06/17 11:58 11/06/17 11:58 11/06/17 11:58 11/06/17 11:58 11/06/17 11:58 - Patient Status Disposition: Home, Self-Care Condition: Fair - Discharge Instructions Follow Up With: Anel De Oliveira MD [Primary Care Provider] - 1 week - Diet and Activity Activity: resume usual activities as tolerated Diet: advance to your usual diet
[2017-11-06] MEDS ORDERED: *HR* Rivaroxaban 15 MG TABLET PO SCH (17:00)
[2017-11-06] MEDS ORDERED: diazePAM 5 MG TABLET PO SCH (21:00)
[2017-11-07] MEDS ORDERED: ZETIA 10MG PO SCH (09:00)
--- NOTE | 2017-11-08 17:45 | Electrocardiograph Report ---
[address] [address] Test Date: 2017-11-06 Pat Name: Dillon Vivas Department: [id number] Room: [facility] Gender: M Competitive Intelligence Analyst: [id number] : 1940 Requested By: Rosamaria Greenfield Order Number: [id number] Reading MD: Mendy Shoemaker Measurements Intervals [place] Rate: 123 P: [place]: 0 QRS: -29 QRSD: 94 T: 101 QT: 277 QTc: 350 Interpretive Statements ATRIAL FIBRILLATION WITH RAPID VENTRICULAR RESPONSE BORDERLINE LEFT AXIS DEVIATION MODERATE VOLTAGE CRITERIA FOR LVH, CONSIDER NORMAL VARIANT NONSPECIFIC ST & T-WAVE ABNORMALITY Electronically Signed On 11-08-2017 17:43:35 EDT by Mendy Shoemaker
== END 2017-11-06 17:20 | disposition home or self-care (01) ==
LOC: INPPIK 00:32 → EMEROOPIK 00:32 → INPPIK 03:03
PROVIDERS: ADMIT Internal Medicine; ATTEND Internal Medicine

== ENCOUNTER 2018-03-14 07:43 | Observation (INO) ==
[2018-03-14] MEDS ORDERED: Ipratropium/Albuterol Neb 3 ML IH ONE (08:09)
[2018-03-14] MEDS ORDERED: methylPREDNISolone 125 MG/2 ML VIAL IVP ONE (08:09)
--- NOTE | 2018-03-14 08:14 | Emergency Department Note ---
Disposition Clinical Impression: Influenza A, Dyspnea, Elevated troponin Disposition: Admitted As Inpatient Condition: Good Referrals: Anel De Oliveira MD [Primary Care Provider] - Forms: ED Satisfaction Letter General Adult HPI - General Chief complaint: ED Shortness of Breath/Dyspnea Stated complaint: shortness of breath Time Seen by Provider: 03/14/18 08:00 Source: patient Mode of arrival: ambulatory Limitations: no limitations Nursing Notes Reviewed: Yes Vital Signs Reviewed: Yes - History of Present Illness HPI Narrative: Patient complains of increasing shortness breath for the past couple of days. He has not seen his primary care provider. He denies any fevers chills [place] of cough with minimal sputum production. Denies any chest pain. Has chronic left shoulder pain from where he had his shoulder replaced. Onset (ago): day(s) (2) Location: chest Pain Scale: 0 Consistency: constant Improves with: nothing Worsens with: nothing Associated symptoms: Reports: cough, shortness of breath Treatments Prior to Arrival: none - Related Data Home Medications Medication Instructions Recorded Confirmed Ezetimibe [Zetia] 10 mg PO DAILY 01/13/16 03/14/18 Gabapentin [Neurontin] 300 mg PO TID 01/13/16 03/14/18 Levothyroxine [Synthroid] 50 mcg PO DAILY 01/13/16 03/14/18 Testosterone Cypionate 100 mg IM Q2W 01/13/16 03/14/18 [Depo-Testosterone] Aspirin [Lo-Dose Aspirin EC] 81 mg PO DAILY 05/22/16 03/14/18 Tamsulosin HCl [Flomax] 0.4 mg PO DAILY 05/22/16 03/14/18 Naloxegol Oxalate [Movantik] 25 mg PO DAILY 06/11/16 03/14/18 Nitroglycerin [Nitrostat] 0.4 mg SL Q5M PRN MDD [id number] CALL 07/22/16 03/14/18 911 Rivaroxaban [Xarelto] 20 mg PO DAILY 07/22/16 03/14/18 Digoxin [Lanoxin] 0.125 mg PO DAILY 11/10/16 03/14/18 Fenofibrate Nanocrystallized 160 mg PO DAILY 11/17/16 03/14/18 [Triglide] Albuterol Sulfate [Ventolin Hfa] 2 puff IH Q6H PRN 01/12/18 03/14/18 Dutasteride 0.5 mg PO DAILY 01/12/18 03/14/18 Losartan/Hydrochlorothiazide 1 tab PO DAILY 01/12/18 03/14/18 [Losartan-Hctz 100-12.5 mg Tab] Metoprolol Succinate [Toprol Xl] 50 mg PO DAILY 01/12/18 03/14/18 Multivitamin [One-Daily 1 tab PO DAILY 01/12/18 03/14/18 Multi-Vitamin] metFORMIN [Glucophage] 500 mg PO BID 01/12/18 03/14/18 Previous Rx's Medication Instructions Recorded OxyCODONE/APAP 10325 [Percocet 1 each PO Q4H PRN 7 Days #42 tablet 11/24/16 10/325 MG] Allergies Allergy/AdvReac Type Severity Reaction Status Date / Time No Known Allergies Allergy Verified 02/02/17 10:21 All systems ED: reviewed and negative except as stated. Review of Systems: As Per HPI Constitutional: Denies: fever, chills, weakness, weight change Eyes: Denies: eye pain, eye discharge, vision change ENT ED: Denies: ear pain, throat pain, dental pain, hearing loss, epistaxis, congestion, dysphagia Cardiovascular: Denies: chest pain, palpitations, dyspnea on exertion, edema, syncope Respiratory: Reports: as per HPI, cough, dyspnea Gastrointestinal: Denies: abdominal pain, nausea, vomiting, diarrhea, constipation, hematemesis, melena, hematochezia Genitourinary: Denies: urgency, dysuria, frequency, hematuria Musculoskeletal: Denies: back pain, neck pain, arthralgia, myalgia Integumentary: Denies: rash, abrasion, lesions Neurological: Denies: headache, weakness, numbness, paresthesias, confusion, abnormal gait, vertigo Psychiatric: Denies: anxiety, depression, suicidal thoughts, homicidal thoughts, auditory hallucinations, visual hallucinations Endocrine: Denies: fatigue Hematological/Lymphatic: Denies: easy bleeding, easy bruising Allergic/Immunologic: Denies: facial swelling, urticaria Past Medical History - Past Medical History Attestation: Yes The following information was validated with the patient. Source: patient, nursing notes reviewed Medical history: Reports: arthritis, coronary artery disease, diabetes, glaucoma, hyperlipidemia, hypertension, myocardial infarction Surgical history: Reports: cholecystectomy, orthopedic, other, vascular surgery Psychiatric history: Reports: anxiety, depression - Social History Smoking Status: Current some day smoker Smokeless Tobacco Status: No Alcohol use: Reports: rarely Drug use: Reports: none Physical Exam - General Limitations: no limitations General appearance: alert - Head Head exam: atraumatic, normocephalic, normal inspection - Eye Eye exam: Present: normal appearance, PERRL, EOMI - ENT ENT exam: normal exam, normal oropharynx, mucous membranes moist - Neck Neck exam: Present: normal inspection, full ROM, trachea midline - Chest Chest inspection: Present: normal inspection, symmetric chest wall rise - Respiratory Respiratory exam: Present: other (generalized diminished breath sounds). Absent: respiratory distress - Abdominal Exam Abdominal exam: Present: soft, Non-Tender, normal bowel sounds - Extremities Exam Extremities exam: Present: normal inspection, full ROM. Absent: tenderness, pedal edema - Neurological Exam Neurological exam: Present: alert - Psychiatric Psychiatric exam: Present: normal affect, normal mood - Skin Skin exam: Present: warm, dry, intact Course Vital Signs Temperature 97.6 F 03/14/18 07:43 Pulse Rate 82 03/14/18 07:43 Respiratory Rate 18 03/14/18 07:43 Blood Pressure 177/91 03/14/18 07:43 O2 Sat by Pulse Oximetry 92 03/14/18 07:43 Temperature 97.6 F 03/14/18 07:43 Pulse Rate 82 03/14/18 07:43 Respiratory Rate 20 03/14/18 08:26 Blood Pressure 177/91 03/14/18 07:43 O2 Sat by Pulse Oximetry 94 03/14/18 08:26 Oxygen Delivery Oxygen Delivery Room Air Medical Decision Making - [facility] Narrative Medical decision making narrative: I reviewed the patients medication list I discussed case Dr. Crook who is graciously accepted admission to the hospital - Lab Data Lab results reviewed: Yes I reviewed the patient's lab results. Result diagrams: 03/14/18 08:20 Lab Results 03/14/18 03/14/18 Range/Units 08:20 08:20 WBC 4.7 (4.3-11.1) K/mcL RBC 4.35 (4.19-5.50) M/mcL Hgb 14.7 (12.9-16.9) g/dL Hct 42.8 (37.5-50.1) % MCV 98.4 (83.0-100.0) fL MCH 33.8 H (28.0-33.3) pg MCHC 34.3 (31.6-35.5) g/dL RDW 13.4 (11.5-14.5) % Plt Count 177 (140-400) K/mcL MPV 10.9 (9.4-12.4) fL PT 20.4 H (9.4-12.1) Seconds INR 1.8 APTT 44.0 H (26.0-36.0) Seconds - Radiology Data Radiology results reviewed: Yes I reviewed the patient's radiology results.
[2018-03-14 08:25] LABS: Hematocrit 42.8 % (37.5-50.1); Hemoglobin 14.7 g/dL (12.9-16.9); Mean Corpuscular HGB Conc 34.3 g/dL (31.6-35.5); Mean Corpuscular Hemoglobin 33.8 pg (28.0-33.3); Mean Corpuscular Volume 98.4 fL (83.0-100.0); Mean Platelet Volume 10.9 fL (9.4-12.4); Platelet Count 177 K/mcL (140-400); Red Blood Count 4.35 M/mcL (4.19-5.50); Red Cell Distribution Width 13.4 % (11.5-14.5)
[2018-03-14 08:33] LABS: INR 1.8; Prothrombin Time 20.4 Seconds (9.4-12.1)
[2018-03-14 08:55] LABS: Troponin I 0.08 ng/mL (< 0.04)
[2018-03-14 09:10] LABS: Alanine Aminotransferase 19 Units/L (7-52); Albumin 3.7 g/dL (3.5-5.7); Albumin/Globulin Ratio 1.5 (1.1-2.2); Alkaline Phosphatase 28 Units/L (34-104); Anisocytosis 1+ (Not Present); Aspartate Amino Transferase 21 Units/L (13-39); BUN/Creatinine Ratio 14 (6-26); Bilirubin,Total 0.7 mg/dL (0.3-1.0); Blood Urea Nitrogen 17 mg/dL (8-23); Calcium 9.2 mg/dL (8.6-10.3); Carbon Dioxide 33 mEq/L (23-29); Chloride 102 mEq/L (98-107); Globulin 2.5 g/dL (2.4-3.5); Glucose 115 mg/dL (70-105); Large Platelets Present (Not Present); Lymphocytes # 0.9 K/mcL (0.6-4.6); Monocytes # 0.7 K/mcL (0.0-1.3); Neutrophils # 3.1 K/mcL (1.6-8.9); Osmolality,Calculated 292 (280-300); Platelet Estimate Normal (Normal); Potassium 4.7 mEq/L (3.5-5.1); Sodium 140 mEq/L (136-145); Total Protein 6.2 g/dL (6.4-8.9); eGFR For Non-African Americans 60 (> 60)
[2018-03-14] MEDS ORDERED: Aspirin 81 MG TAB.CHEW PO STA (09:14)
--- NOTE | 2018-03-14 10:02 | Electrocardiograph Report ---
[place] [address] Test Date: 2018-03-14 Pat Name: Dillon Vivas Department: EDP-14 Room: Gender: M Vocational Rehab Consultant: : 1940 Requested By: Matthew Call Order Number: [id number] Reading MD: Nicholas Souza Measurements Intervals [place] Rate: 69 P: 8 [place]: 163 QRS: -23 QRSD: 87 T: 136 QT: 393 QTc: 421 Interpretive Statements Sinus rhythm Abnormal R-wave progression, early transition LVH with secondary repolarization abnormality Electronically Signed On 03-14-2018 10:00:36 EST by Nicholas Souza
[2018-03-14] MEDS ORDERED: Ipratropium/Albuterol Neb 3 ML IH SCH (11:00)
[2018-03-14] MEDS ORDERED: Nitroglycerin 0.4 MG TAB.SUBL SL PRN (12:47)
[2018-03-14] MEDS ORDERED: NON-FORMULARY MEDICATION 1 EACH EACH (Testosterone Cypionate [Depo-Testosterone] 100 MG) IM SCH (12:47)
[2018-03-14] MEDS ORDERED: Naloxone 0.4 MG/ML INJ IVP PRN (12:47)
[2018-03-14] MEDS: Ipratropium/Albuterol Neb 3 ML IH SCH ×2 (13:54→16:51)
[2018-03-14 16:55] LABS: Hematocrit 42.4 % (37.5-50.1); Hemoglobin 14.5 g/dL (12.9-16.9); Mean Corpuscular HGB Conc 34.2 g/dL (31.6-35.5); Mean Corpuscular Hemoglobin 33.6 pg (28.0-33.3); Mean Corpuscular Volume 98.1 fL (83.0-100.0); Mean Platelet Volume 11.3 fL (9.4-12.4); Platelet Count 184 K/mcL (140-400); Red Blood Count 4.32 M/mcL (4.19-5.50); Red Cell Distribution Width 13.7 % (11.5-14.5)
[2018-03-14] MEDS: Gabapentin 300 MG CAPSULE PO SCH ×2 (16:55→21:39)
[2018-03-14] MEDS: *HR* Metformin 500 MG TABLET PO SCH (16:56)
[2018-03-14] MEDS: *HR* OxyCODONE/APAP 10/325 TABLET PO PRN ×2 (17:02→21:44)
[2018-03-14 18:19] LABS: Lymphocytes # 0.2 K/mcL (0.6-4.6)
[2018-03-14 18:20] LABS: Platelet Estimate Normal (Normal)
[2018-03-14] MEDS ORDERED: Albuterol 2.5 MG/3 ML NEBULIZER IH PRN (18:52)
--- NOTE | 2018-03-14 18:57 | Internal Med History&Physical ---
Date of Encounter: 03/14/18 Time of Encounter: 18:25 Assessment and Plan (1) Influenza A Current visit: Yes Status: Acute Tamiflu was started in emergency room and will be continued. Further workup and treatment will be done as needed. (2) Elevated troponin Current visit: Yes Status: Chronic Elevated on most labs since 2014. Continue to monitor. (3) HTN (hypertension) Current visit: No Status: Chronic Continue Toprol and Hyzaar. Qualifiers: Hypertension type: essential hypertension Qualified Code(s): I10 - Essential (primary) hypertension (4) A-fib Current visit: No Status: Chronic Presently in NSR. Continue Toprol, Lanoxin, and Xarelto. Qualifiers: Atrial fibrillation type: paroxysmal Qualified Code(s): I48.0 - Paroxysmal atrial fibrillation (5) Diabetes mellitus Current visit: No Status: Chronic Hemoglobin A1c was 5.8% on 03/07/2018. Continue metformin. 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 Vivas is a 78 year old male who came to emergency room stating he had increased dyspnea onset 2 days earlier. He reports he had occasional sensation of fevers and chills but no vomiting or diarrhea. Reports a cough productive of clear sputum occasionally. He was evaluated in emergency room and tested positive for influenza A. He was given Tamiflu and admitted to [facility] floor for ongoing care needs. Respiratory history is significant for having smoked from age [age] never exceeding one half pack per day. He does not have documented COPD and does not wear home oxygen. Past Med Surg Social Fam HX - Past Medical History Medical history: arthritis, coronary artery disease, diabetes, glaucoma, hyperlipidemia, hypertension, myocardial infarction Additional medical history: NSTEMI, diverticulosis Psychiatric history: anxiety, depression - Past Surgical History Surgical History: cholecystectomy, orthopedic, other, vascular surgery Additional surgical history: subcalvin bypass graft, shoulder sx, salivary gland sx, cataract - Social History Smoking Status: Current some day smoker Packs per day: 1 pack per week Smokeless Tobacco Status: No Alcohol use: rarely Drug use: none - Family History Mother Family Member Ethnicity: Non- Living Status: Hx Family Cancer: Yes (Breast cancer) Internal Medicine - H&P: Meds Ezetimibe [Zetia] 10 mg PO DAILY 01/13/16 [History] Gabapentin [Neurontin] 300 mg PO TID 01/13/16 [History] Levothyroxine [Synthroid] 50 mcg PO DAILY 01/13/16 [History] Testosterone Cypionate [Depo-Testosterone] 100 mg IM Q2W 01/13/16 [History] Aspirin [Lo-Dose Aspirin EC] 81 mg PO DAILY 05/22/16 [History] Tamsulosin HCl [Flomax] 0.4 mg PO DAILY 05/22/16 [History] Naloxegol Oxalate [Movantik] 25 mg PO DAILY 06/11/16 [History] Nitroglycerin [Nitrostat] 0.4 mg SL Q5M PRN MDD [id number] CALL 911 07/22/16 [History] Rivaroxaban [Xarelto] 20 mg PO DAILY 07/22/16 [History] Digoxin [Lanoxin] 0.125 mg PO DAILY 11/10/16 [History] Fenofibrate Nanocrystallized [Triglide] 160 mg PO DAILY 11/17/16 [History] OxyCODONE/APAP 10/325 [Percocet 10/325 MG] 1 each PO Q4H PRN 7 Days #42 tablet 11/24/16 [Rx] Albuterol Sulfate [Ventolin Hfa] 2 puff IH Q6H PRN 01/12/18 [History] Dutasteride 0.5 mg PO DAILY 01/12/18 [History] Losartan/Hydrochlorothiazide [Losartan-Hctz 100-12.5 mg Tab] 1 tab PO DAILY 01/12/18 [History] Metoprolol Succinate [Toprol Xl] 50 mg PO DAILY 01/12/18 [History] Multivitamin [One-Daily Multi-Vitamin] 1 tab PO DAILY 01/12/18 [History] metFORMIN [Glucophage] 500 mg PO BID 01/12/18 [History] Allergy/AdvReac Type Severity Reaction Status Date / Time No Known Allergies Allergy Verified 02/02/17 10:21 All Systems PM: A 10-system review of systems was performed and is negative for pertinent findings except as documented above in the HPI. Review of systems: Review of systems from his October 2017 [facility] hospitalization were reviewed and revised as below. Gen.: His weight has decreased from 83.915 kg on 05/22/2016 to 72.575 kg now. He states this was intentional. Cardiovascular: He has history of hypertension and ASHD status post [place] 2006. He reports heart cath done shortly afterward required no intervention. He does not get angina or anginal equivalents on exertion. He denies heart failure DVT or pulmonary embolus. He has history of atrial fibrillation and was hospitalized at [facility] October 2017 and May 2016 with AF. He converted to NSR and is now on higher dose Toprol-XL which has maintained NSR. Respiratory: As per history of present illness GI: Denies disorders of his liver or exocrine pancreas. He had laparoscopic cholecystectomy November 2016. : He has BPH but denies other kidney or bladder disorders Neurologic: He denies large distribution strokes or seizures. He is on Neurontin but does not know the specific diagnosis. Endocrine: He was diagnosed with DM 2 approximately 2014. He has hypothyroidism and hyperlipidemia Hematology/oncology: He denies blood disorders cancers or anemia Psychiatric: He denies anxiety depression or other mental health issues Musculoskeletal: He had rotator cuff surgery on his right shoulder in the past. He had left reverse total shoulder replacement 01/12/2018. He denies other significant bone joint or muscle problems. He has had surgery on his right foot. - Constitutional Vitals: Temp Pulse Resp BP Pulse Ox 97.5 F L 95 14 156/89 97 03/14/18 16:34 03/14/18 16:34 03/14/18 16:51 03/14/18 16:34 03/14/18 16:51 Exam: Gen.: He is a well-developed well-nourished male sitting in bed who appears in no acute distress HEENT: Head is atraumatic and normocephalic. Eyes: EOMI. There is no scleral icterus. Mouth: Mucosa is moist. Neck: Supple and nontender. There is no thyromegaly or adenopathy noted. Heart: Regular without murmurs gallops or ectopics Lungs: No wheezes crackles or egophony are heard. Abdomen: Soft and nontender. No masses or guarding are noted. Extremities: There is no cyanosis edema or clubbing noted. Dorsalis pedis and posttibial pulses are trace to 1+ palpable bilaterally. Neurologic: Mental status: He is talkative and a good historian. Cranial nerves: Smile is symmetric. Forehead wrinkles bilaterally. Tongue protrudes midline. EOMI. Motor: There is no pronator drift. Cerebellar: Finger to nose is intact bilaterally. Skin: Warm and dry Internal Med - H&P Results - Labs CBC & Chem 7: 03/14/18 16:20 03/14/18 08:20 Labs: Short CBC 03/14/18 03/14/18 Range/Units 08:20 16:20 WBC 4.7 1.3 L D (4.3-11.1) K/mcL Hgb 14.7 14.5 (12.9-16.9) g/dL Hct 42.8 42.4 (37.5-50.1) % Plt Count 177 184 (140-400) K/mcL Neutrophils # 3.1 1.0 L (1.6-8.9) K/mcL BMP 03/14/18 08:20 Sodium 140 Potassium 4.7 Chloride 102 Carbon Dioxide 33 H BUN 17 Creatinine 1.18 Glucose 115 H Calcium 9.2 Cardiac Enzymes 03/14/18 03/14/18 03/14/18 Range/Units 08:20 10:16 16:20 Troponin I 0.08 H* 0.08 H* 0.05 H* (< 0.04) ng/mL Liver Function 03/14/18 Range/Units 08:20 Total Bilirubin 0.7 (0.3-1.0) mg/dL AST 21 (13-39) Units/L ALT 19 (7-52) Units/L Alkaline Phosphatase 28 L (34-104) Units/L Albumin 3.7 (3.5-5.7) g/dL - Impressions ITS Impressions Chest X-Ray 03/14/18 08:09 IMPRESSION: 1. Pulmonary vascular congestion. 2. Aortic stent graft for an aneurysm, unchanged. D/ / 03/14/2018 09:04:35 Mike Mclean MD / gisselle Interpreting Provider: iMke Mclean MD
[2018-03-14] MEDS: Oseltamivir Phosphate 30 MG CAPSULE PO SCH (21:41)
[2018-03-14] MEDS ORDERED: Metoprolol XL (24 HR) Succ 50 MG TAB.ER.24H PO SCH (22:00)
[2018-03-14] MEDS ORDERED: traZODone 50 MG TABLET PO PRN (22:01)
[2018-03-14 22:55] LABS: Hematocrit 39.4 % (37.5-50.1); Hemoglobin 13.7 g/dL (12.9-16.9); Mean Corpuscular HGB Conc 34.8 g/dL (31.6-35.5); Mean Corpuscular Hemoglobin 33.9 pg (28.0-33.3); Mean Corpuscular Volume 97.5 fL (83.0-100.0); Mean Platelet Volume 10.3 fL (9.4-12.4); Platelet Count 187 K/mcL (140-400); Red Blood Count 4.04 M/mcL (4.19-5.50); Red Cell Distribution Width 13.5 % (11.5-14.5)
[2018-03-14 23:58] LABS: Anisocytosis 1+ (Not Present); Lymphocytes # 0.4 K/mcL (0.6-4.6); Monocytes # 0.1 K/mcL (0.0-1.3); Neutrophils # 1.4 K/mcL (1.6-8.9)
[2018-03-14 23:59] LABS: Large Platelets Present (Not Present)
[2018-03-15 05:21] LABS: BUN/Creatinine Ratio 22 (6-26); Blood Urea Nitrogen 23 mg/dL (8-23); Calcium 8.6 mg/dL (8.6-10.3); Carbon Dioxide 27 mEq/L (23-29); Chloride 102 mEq/L (98-107); Glucose 143 mg/dL (70-105); Osmolality,Calculated 286 (280-300); Sodium 135 mEq/L (136-145); eGFR For Non-African Americans > 60 (> 60)
[2018-03-15] MEDS ORDERED: Levothyroxine 25 MCG TABLET PO SCH (06:30)
[2018-03-15 07:00] VITALS: BP 142/75
[2018-03-15] MEDS: *HR* OxyCODONE/APAP 10/325 TABLET PO PRN (07:01)
[2018-03-15] MEDS ORDERED: Finasteride 5 MG TABLET PO SCH (09:00)
[2018-03-15] MEDS ORDERED: *HR* Rivaroxaban 10 MG TABLET PO SCH (09:00)
[2018-03-15] MEDS ORDERED: NON-FORMULARY MEDICATION 1 EACH EACH (Ezetimibe [Zetia] 10 MG) PO SCH (09:00)
[2018-03-15] MEDS ORDERED: Losartan/HCTZ 50-12.5 TABLET PO SCH (09:00)
[2018-03-15] MEDS ORDERED: Metoprolol XL (24 HR) Succ 50 MG TAB.ER.24H PO SCH (09:00)
[2018-03-15] MEDS ORDERED: Multivit/Ca/Min/Fe/FA 1 TAB TABLET PO SCH (09:00)
[2018-03-15] MEDS ORDERED: MOVANTIK 25MG PO SCH (09:00)
[2018-03-15] MEDS ORDERED: Fenofibrate 54 MG TABLET PO SCH (09:00)
[2018-03-15] MEDS ORDERED: Aspirin Enteric Coated 81 MG Tablet PO SCH (09:00)
[2018-03-15] MEDS ORDERED: *HR* Digoxin 0.125 MG TABLET PO SCH (09:00)
[2018-03-15] MEDS: *HR* Metformin 500 MG TABLET PO SCH (09:17)
[2018-03-15] MEDS: Gabapentin 300 MG CAPSULE PO SCH (09:17)
[2018-03-15] MEDS: Oseltamivir Phosphate 30 MG CAPSULE PO SCH (09:18)
--- NOTE | 2018-03-15 10:23 | Discharge Summary ---
Date of Encounter: 03/15/18 Time of Encounter: 10:15 - Discharge Diagnosis (1) Influenza A Priority: Primary Status: Acute (2) Elevated troponin Priority: Secondary Status: Chronic (3) HTN (hypertension) Priority: Secondary Status: Chronic Qualifiers: Hypertension type: essential hypertension Qualified Code(s): I10 - Essential (primary) hypertension (4) A-fib Priority: Secondary Status: Chronic Qualifiers: Atrial fibrillation type: paroxysmal Qualified Code(s): I48.0 - Paroxysmal atrial fibrillation (5) Diabetes mellitus Priority: Secondary Status: Chronic Qualifiers: Diabetes mellitus type: type 2 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 Vivas is a 78 year old male who came to emergency room stating he had incr eased dyspnea onset 2 days earlier. He reports he had occasional sensation of fevers and chills but no vomiting or diarrhea. Reports a cough productive of clear sputum occasionally. He was evaluated in emergency room and tested positive for influenza A. He was given Tamiflu and admitted to [facility] floor for ongoing care needs. Initial orders were written by the emergency room physician. I saw him on March 14 and performed a history and physical. He was started on Tamiflu. He felt improved when I saw him in March 15. I felt he was stable for discharge home. He will continue with Tamiflu for 4 additional days at discharge. He had a few short runs of NSVT which were asymptomatic. Toprol XL dose will be increased to 75 mg daily. He is uncertain if he is actually taking losart an/HCTZ. I told him to discontinue it if he was taking it. His PCP can adjust medications/doses based on his blood pressure. Further evaluation of the ventricular ectopy can be done by his PCP and/or cardiology referral. Room air oximetry will be checked on 6 minute walk prior to discharge. He will follow with his PCP Dr. De Oliveira within 1 week. - Time Spent with Patient Total time spent providing and/or coordinating discharge services: - Discharge Medications Prescriptions: Metoprolol XL (24 HR) Succ [Toprol XL] 75 mg PO DAILY #45 tab.er.24h Oseltamivir Phosphate [Tamiflu] 30 mg PO BID #8 capsule Home Medications: Ezetimibe [Zetia] 10 mg PO DAILY 01/13/16 [History] Gabapentin [Neurontin] 300 mg PO TID 01/13/16 [History] Levothyroxine [Synthroid] 50 mcg PO DAILY 01/13/16 [History] Testosterone Cypionate [Depo-Testosterone] 100 mg IM Q2W 01/13/16 [History] Aspirin [Lo-Dose Aspirin EC] 81 mg PO DAILY 05/22/16 [History] Tamsulosin HCl [Flomax] 0.4 mg PO DAILY 05/22/16 [History] Naloxegol Oxalate [Movantik] 25 mg PO DAILY 06/11/16 [History] Nitroglycerin [Nitrostat] 0.4 mg SL Q5M PRN MDD [id number] CALL 911 07/22/16 [History] Rivaroxaban [Xarelto] 20 mg PO DAILY 07/22/16 [History] Digoxin [Lanoxin] 0.125 mg PO DAILY 11/10/16 [History] Fenofibrate Nanocrystallized [Triglide] 160 mg PO DAILY 11/17/16 [History] OxyCODONE/APAP 10/325 [Percocet 10/325 MG] 1 each PO Q4H PRN 7 Days #42 tablet 11/24/16 [Rx] Albuterol Sulfate [Ventolin Hfa] 2 puff IH Q6H PRN 01/12/18 [History] Dutasteride 0.5 mg PO DAILY 01/12/18 [History] Multivitamin [One-Daily Multi-Vitamin] 1 tab PO DAILY 01/12/18 [History] metFORMIN [Glucophage] 500 mg PO BID 01/12/18 [History] Metoprolol XL (24 HR) Succ [Toprol XL] 75 mg PO DAILY #45 tab.er.24h 03/15/18 [Rx] Oseltamivir Phosphate [Tamiflu] 30 mg PO BID #8 capsule 03/15/18 [Rx] Allergies/Adverse Reactions: Allergy/AdvReac Type Severity Reaction Status Date / Time No Known Allergies Allergy Verified 02/02/17 10:21 Date of admission: 03/14/18 11:34 Primary care physician: Anel De Oliveira - Constitutional Vitals: Temp Pulse Resp BP Pulse Ox 98.2 F 68 16 142/75 96 03/15/18 06:52 03/15/18 06:52 03/15/18 06:52 03/15/18 06:52 03/15/18 06:52 - Patient Status Disposition: Home, Self-Care Condition: Good - Discharge Instructions Follow Up With: Anel De Oliveira MD [Primary Care Provider] - 1 week - Diet and Activity Activity: resume usual activities as tolerated Diet: advance to your usual diet
== END 2018-03-15 11:55 | disposition home or self-care (01) ==
LOC: INPPIK 07:43 → EMEROOPIK 07:43 → INPPIK 13:05
PROVIDERS: ADMIT Internal Medicine; ATTEND Internal Medicine